=== PATIENT | male | born 2000 | race African-American/Black ===

== ENCOUNTER 2022-01-25 16:47 | Emergency (ER) | payer SELFPAY ==
[2022-01-25] MEDS ORDERED: ONDANSETRON 4 MG/2 ML VIAL ONE (16:58)
[2022-01-25] MEDS ORDERED: HYDROMORPHONE HCL 1 MG/ML INJ ONE ×3 (16:58→18:31)
--- NOTE | 2022-01-25 17:13 | RAD REPORT ---
EXAM DESCRIPTION: Surinder Cedillo Left01/25/2022 5:06 pm CLINICAL HISTORY: Left leg pain status post injury FINDINGS: A nondisplaced fracture mid to distal left fibula.
--- NOTE | 2022-01-25 17:16 | RAD REPORT ---
EXAM DESCRIPTION: RAD - Foot Left 3 View - 01/25/2022 5:06 pm CLINICAL HISTORY: Left Foot pain status post injury FINDINGS: Moderately displaced fracture mid second metatarsal. Markedly displaced comminuted fracture of mid to distal third metatarsal Moderately displaced fracture distal fifth metatarsal. Radiopaque foreign body within the medial subcutaneous tissues forefoot. Lacerations involve the medi al foot. No dislocation is seen
[2022-01-25] MEDS ORDERED: CEFAZOLIN SODIUM 1 GM/VIAL ONE (17:21)
[2022-01-25] MEDS ORDERED: NA CHLORIDE 0.9% 100 ML IV ONE (17:23)
[2022-01-25] MEDS ORDERED: TETANUS & DIPHTHERIA TOX,ADULT 0.5 ML VIAL ONE (18:31)
[2022-01-25 19:16] LABS: Absolute Lymphocytes (CBC) 2.9 K/uL (0.7-4.9); Hematocrit 40.7 % (39.6-49.0); Lymphocytes % 42.9 % (15.3-44.8); MPV 10.6 fL (7.6-11.3)
--- NOTE | 2022-01-25 19:41 | ER ---
Nurse's Notes [facility] Name: Haja Sandhu Age: 21 yrs Sex: Male : 2000 Arrival Date: 01/25/2022 Time: 16:47 Bed 17 Private MD: Diagnosis: Second, third, fifth metacarpal fracture - open;Distal Fibular Fracture Presentation: 01/25 17:07 Chief complaint: Patient states: Left foot pain and laceration. 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 Ankle laceration is 4cm x 1cm and foot laceration is 13.5cm x 3cm. Coronavirus screen: Vaccine status: Client denies travel out of the [place] in the last 14 days. Ebola Screen: Patient denies travel to an Ebola-affected area in the 21 days before illness onset. Initial Sepsis Screen: Does the patient meet any 2 criteria? No. Patient's initial sepsis screen is negative. Does the patient have a suspected source of infection? No. Patient's initial sepsis screen is negative. Risk Assessment: Do you want to hurt yourself or someone else? Patient reports no desire to harm self or others. Onset of symptoms was January 25, 2022. 17:07 Method Of Arrival: EMS: [facility] 17:07 Acuity: MARIE 3 ww Triage Assessment: 17:11 General: Appears uncomfortable, Behavior is cooperative, crying. Pain: Complains of ww pain in left medial malleolus, instep of left foot, arch of left foot, dorsum of left foot, medial aspect of left toes and left leg. EENT: No signs and/or symptoms were reported regarding the EENT system. Neuro: Level of Consciousness is awake, alert, obeys commands, Oriented to person, place, time, situation, Speech is normal. Cardiovascular: Capillary refill < 3 seconds Patient's skin is warm and dry. Rhythm is regular. Respiratory: Airway is patent Respiratory effort is even, unlabored, Respiratory pattern is regular, symmetrical. GI: No signs and/or symptoms were reported involving the gastrointestinal system. : No signs and/or symptoms were reported regarding the genitourinary system. Derm: Skin is healthy with good turgor. Musculoskeletal: Injury Description: Laceration sustained to left medial ankle and medial aspect of left foot is Ankle 4cm x 1cm; foot 13.5cm x 3cm. Historical: - Allergies: 17:11 No Known Allergies; ww - Home Meds: 17:11 None [Active]; ww - PMHx: 17:11 None; ww - PSHx: 17:11 None; ww - Immunization history:: Last tetanus immunization: unknown. - Social history:: Smoking status: Patient denies any tobacco usage or history of. Patient uses street drugs, marijuana. Screenin:14 Abuse screen: Denies threats or abuse. Denies injuries from another. Nutritional ww screening: No deficits noted. Tuberculosis screening: No symptoms or risk factors identified. Fall Risk None identified. Assessment: 17:14 Reassessment: see triage assessment. ww 17:45 Reassessment: No changes from previously documented assessment. Patient and/or family ww updated on plan of care and expected duration. Pain level reassessed. Patient states symptoms have not improved. Neuro: Level of Consciousness is awake, alert, obeys commands, Oriented to person, place, time, situation, Speech is normal, Respiratory: Airway is patent Respiratory effort is even, unlabored, Respiratory pattern is regular, symmetrical. 18:30 Reassessment: No changes from previously documented assessment. Patient and/or family ww updated on plan of care and expected duration. Pain level reassessed. states pain has decreased to an 8/10. 19:02 General: Appears in no apparent distress. Behavior is calm, cooperative, appropriate vc1 for age. Neuro: Level of Consciousness is awake, alert, obeys commands, Oriented to person, place, time, situation, Appropriate for age. Cardiovascular: Patient's skin is warm and dry. Derm: Wound noted medial aspect of left foot. 19:21 Reassessment: Labs recollected and sent. vc1 20:37 Reassessment: Patient transferred by EMS, IV patent, respirations even and unlabored. vc1 Vital Signs: 17:07 BP 133 / 118; Pulse 80; Resp 18; Temp 98.6; Pulse Ox 100% ; Weight 81.65 kg; Height 6 ww ft. 0 in. (182.88 cm); Pain 10/10; 17:30 BP 150 / 68; Pulse 61; Resp 16; Pulse Ox 99% on R/A; Pain 10/10; ww 18:00 BP 141 / 120; Pulse 61; Resp 12; Pulse Ox 99% on R/A; Pain 10/10; ww 19:00 Pain 5/10; vc1 19:03 BP 128 / 107; Pulse 49; Resp 18; Pulse Ox 100% on R/A; vc1 19:18 BP 126 / 75; Pulse 63; Resp 17; Pulse Ox 98% on R/A; ww 17:07 Body Mass Index 24.41 (81.65 kg, 182.88 cm) ww Trauma Score (Adult): 17:30 Eye Response: spontaneous(1); Verbal Response: oriented(1); Motor Response: obeys ww commands(2); Systolic BP: > 89 mm Hg(4); Respiratory Rate: 10 to 29 per min(4); [place] Score: 15; Trauma Score: 12 18:00 Eye Response: spontaneous(1); Verbal Response: oriented(1); Motor Response: obeys ww commands(2); Systolic BP: > 89 mm Hg(4); Respiratory Rate: 10 to 29 per min(4); Lindsey Score: 15; Trauma Score: 12 18:30 Eye Response: spontaneous(1); Verbal Response: oriented(1); Motor Response: obeys ww commands(2); Systolic BP: > 89 mm Hg(4); Respiratory Rate: 10 to 29 per min(4); Lindsey Score: 15; Trauma Score: 12 ED Course: 16:47 Patient arrived in ED. ds1 16:48 Gallo Muniz PA is PHCP. [facility] 16:48 Mark Martins MD is Attending Physician. [facility] 16:52 Bina Evans, RN is Primary Nurse. ww 17:06 Foot Left 3 View XRAY In Process Unspecified. EDMS 17:06 Tib Fib Left XRAY In Process Unspecified. EDMS 17:09 Triage completed. ww 17:11 Arm band placed on right wrist. ww 17:14 Patient has correct armband on for positive identification. Bed in low position. Call ww light in reach. Side rails up X2. drupal developer on. Pulse ox on. NIBP on. 17:14 Inserted saline lock: 20 gauge in left antecubital area, using aseptic technique. Blood ww collected. 18:00 transfer initiated with [facility] transfer center; transfer declined due to em1 capacity. 19:22 Primary Nurse role handed off by Bina Evans, CONRADO vc1 19:22 Emily Agustin, CONRADO is Primary Nurse. vc1 19:23 initiated a transfer with Romero Quan from [facility]. mw2 19:27 administrative approval given by Romero Quan/ patient has been accepted to [address] to the ER/ Dr. Covarrubias accepted the patient in transfer/report to be called to [phone]. 20:29 Orthoglass splint: Posterior short lleg splint applied on left leg. APPLIED WET AND DRY oe 4/4 GAUZE. 20:36 No provider procedures requiring assistance completed. Patient transferred, IV remains vc1 in place. Administered Medications: 17:04 Drug: Dilaudid (HYDROmorphone) 0.5 mg Route: IVP; Site: left antecubital; ww 17:04 Drug: Zofran (Ondansetron) 4 mg Route: IVP; Site: left antecubital; ww 17:24 Drug: Ancef (cefazolin) 1 grams Route: IVPB; Site: left antecubital; ww 17:24 Drug: Dilaudid (HYDROmorphone) 0.5 mg Route: IVP; Site: left antecubital; ww 18:33 Drug: Tetanus-Diphtheria Toxoid Adult 0.5 ml {P[employer]outer: [employer]. Exp: ww 04/06/2023. Lot #: [id number]. } Route: IM; Site: left deltoid; 19:00 Follow up: Response: No adverse reaction vc1 18:33 Drug: Dilaudid (HYDROmorphone) 1 mg Route: IVP; Site: left antecubital; ww 19:00 Follow up: Pain 5/10 Adult; Response: No adverse reaction; Marked relief of symptoms vc1 20:06 Drug: Lidocaine (1 %) 5 ml Volume: 5 ml; Route: Infiltration; Site: wound; vc1 20:06 Drug: Marcaine (bupivacaine) (0.5 %) 10 ml Volume: 10 ml; Route: Infiltration; Site: vc1 wound; 20:07 Drug: Dilaudid (HYDROmorphone) 0.5 mg Route: IVP; Site: right antecubital; vc1 01/26 02:25 Follow up: Response: No adverse reaction vc1 Outcome: 01/25 19:40 ER care complete, transfer ordered by MD. rodríguez 20:37 Transferred by ground EMS to [facility]. vc1 20:37 Condition: good 20:37 Instructed on the need for transfer. 20:40 Patient left the ED. vc1 Signatures: Dispatcher [employer] EDMS Gallo Muniz PA PA jmm Sanford, Chasity ds1 Antelmo Blake em1 Tevin Canales MyKena mw2 Bina Evans, RN RN ww Emily Agustin RN RN vc1 Corrections: (The following items were deleted from the chart) 17:11 17:07 Pulse 80bpm; Resp 18bpm; Pulse Ox 100%; Temp 98.6F; 81.65 kg; Height 6 ft. 0 in.; ww BMI: 24.4; Pain /; ww
--- NOTE | 2022-01-25 19:41 | EDPHYS ---
Physician Documentation [facility] Name: Haja Sandhu Age: 21 yrs Sex: Male : 2000 Arrival Date: 01/25/2022 Time: 16:47 Bed 17 Private MD: ED Physician Mark Martins HPI: 01/25 16:49 This 21 yrs old Black Male presents to ER via EMS with complaints of Foot Injury. jmm 16:49 The patient presents with an injury. jmm 16:49 The complaints affect the left lateral ankle, lateral aspect of left foot, left jmm Achilles, left heel, left medial ankle and medial aspect of left foot. Onset: The symptoms/episode began/occurred acutely, just prior to arrival. Modifying factors: The symptoms are alleviated by nothing. the symptoms are aggravated by nothing. Associated signs and symptoms: Pertinent positives: swelling. The patient has not experienced similar symptoms in the past. Historical: - Allergies: 17:11 No Known Allergies; ww - Home Meds: 17:11 None [Active]; ww - PMHx: 17:11 None; ww - PSHx: 17:11 None; ww - Immunization history:: Last tetanus immunization: unknown. - Social history:: Smoking status: Patient denies any tobacco usage or history of. Patient uses street drugs, marijuana. ROS: 16:49 Constitutional: Negative for fever, chills, and weight loss, Cardiovascular: Negative jmm for chest pain, palpitations, and edema, Respiratory: Negative for shortness of breath, cough, wheezing, and pleuritic chest pain, Abdomen/GI: Negative for abdominal pain, nausea, vomiting, diarrhea, and constipation. 16:49 MS/extremity: Positive for injury or acute deformity, laceration, pain. 16:49 All other systems are negative. Exam: 16:49 Constitutional: This is a well developed, well nourished patient who is awake, alert, jmm and in no acute distress. Head/Face: atraumatic. Eyes: EOMI, no conjunctival erythema appreciated ENT: Moist Mucus Membranes Neck: Trachea midline, Supple Chest/axilla: Normal chest wall appearance and motion. Cardiovascular: Regular rate and rhythm. No edema appreciated Respiratory: Normal respirations, no respiratory distress appreciated Abdomen/GI: Non distended, soft Back: Normal ROM 16:49 Musculoskeletal/extremity: Swelling noted to the left foot, diffusely tender to palpation, dorsalis pedis pulse appreciated, compartments are soft, neurovascular intact. 16:49 Skin: 13 centimeter laceration noted to the left medial foot, mild bleeding appreciated.. 16:49 Neuro: Orientation: is normal, Mentation: is normal, Memory: is normal. 16:49 Psych: Behavior/mood is pleasant, cooperative, anxious. Vital Signs: 17:07 BP 133 / 118; Pulse 80; Resp 18; Temp 98.6; Pulse Ox 100% ; Weight 81.65 kg; Height 6 ww ft. 0 in. (182.88 cm); Pain 10/10; 17:30 BP 150 / 68; Pulse 61; Resp 16; Pulse Ox 99% on R/A; Pain 10/10; ww 18:00 BP 141 / 120; Pulse 61; Resp 12; Pulse Ox 99% on R/A; Pain 10/10; ww 19:00 Pain 5/10; vc1 19:03 BP 128 / 107; Pulse 49; Resp 18; Pulse Ox 100% on R/A; vc1 19:18 BP 126 / 75; Pulse 63; Resp 17; Pulse Ox 98% on R/A; ww 17:07 Body Mass Index 24.41 (81.65 kg, 182.88 cm) Trauma Score (Adult): 17:30 Eye Response: spontaneous(1); Verbal Response: oriented(1); Motor Response: obeys commands(2); Systolic BP: > 89 mm Hg(4); Respiratory Rate: 10 to 29 per min(4); Hazel Score: 15; Trauma Score: 12 18:00 Eye Response: spontaneous(1); Verbal Response: oriented(1); Motor Response: obeys commands(2); Systolic BP: > 89 mm Hg(4); Respiratory Rate: 10 to 29 per min(4); Hazel Score: 15; Trauma Score: 12 18:30 Eye Response: spontaneous(1); Verbal Response: oriented(1); Motor Response: obeys commands(2); Systolic BP: > 89 mm Hg(4); Respiratory Rate: 10 to 29 per min(4); Lindsey Score: 15; Trauma Score: 12 MDM: 16:50 Patient medically screened. anne 19:38 Data reviewed: vital signs, nurses notes. Counseling: I had a detailed discussion with kwadwo the patient and/or guardian regarding: the historical points, exam findings, and any diagnostic results supporting the discharge/admit diagnosis, radiology results, the need to transfer to another facility. ED course: I discussed the patient with Dr. Aurora ALVARADO, recommends transfer for higher standard of care. We contacted [facility] who is at capacity. [facility] accepted transfer without consultation. IV antibiotics, wound care performed. 01/25 18:01 Order name: CBC with Diff; Complete Time: 19:36 [facility] 01/25 18:01 Order name: CMP; Complete Time: 19:53 [facility] 01/25 16:49 Order name: Foot Left 3 View XRAY; Complete Time: 17:17 [facility] 01/25 16:49 Order name: Tib Fib Left XRAY; Complete Time: 17:15 [facility] 01/25 18:01 Order name: SARS-COV-2 RT PCR (Document "Date of Onset" if Symptomatic); Complete Time: em1 19:18 Administered Medications: 17:04 Drug: Dilaudid (HYDROmorphone) 0.5 mg Route: IVP; Site: left antecubital; ww 17:04 Drug: Zofran (Ondansetron) 4 mg Route: IVP; Site: left antecubital; ww 17:24 Drug: Ancef (cefazolin) 1 grams Route: IVPB; Site: left antecubital; ww 17:24 Drug: Dilaudid (HYDROmorphone) 0.5 mg Route: IVP; Site: left antecubital; ww 18:33 Drug: Tetanus-Diphtheria Toxoid Adult 0.5 ml {[employer]: [employer]. Exp: ww 04/06/2023. Lot #: [id number]. } Route: IM; Site: left deltoid; 19:00 Follow up: Response: No adverse reaction vc1 18:33 Drug: Dilaudid (HYDROmorphone) 1 mg Route: IVP; Site: left antecubital; ww 19:00 Follow up: Pain 5/10 Adult; Response: No adverse reaction; Marked relief of symptoms vc1 20:06 Drug: Lidocaine (1 %) 5 ml Volume: 5 ml; Route: Infiltration; Site: wound; vc1 20:06 Drug: Marcaine (bupivacaine) (0.5 %) 10 ml Volume: 10 ml; Route: Infiltration; Site: vc1 wound; 20:07 Drug: Dilaudid (HYDROmorphone) 0.5 mg Route: IVP; Site: right antecubital; vc1 01/26 02:25 Follow up: Response: No adverse reaction vc1 Disposition Summary: 01/25/22 19:40 Transfer Ordered Transfer Location: [facility] Reason: Higher level of care jmm Condition: Stable jmm Problem: new jmm Symptoms: are unchanged jmm Accepting Physician: Bharat(01/25/22 20:40) vc1 Diagnosis - Second, third, fifth metacarpal fracture - open jmm - Distal Fibular Fracture jmm Forms: - Medication Reconciliation Form jmm - SBAR form jmm Signatures: Dispatcher [employer] EDGallo Fay PA PA jmm Wood, Whitney, RN RN ww Emily Agustin RN RN vc1 Corrections: (The following items were deleted from the chart) 01/25 20:40 19:40 Bharat rodríguez vc1
[2022-01-25 19:47] LABS: Potassium 3.5 mmol/L (3.5-5.1); Protein, Total 7.4 g/dL (6.4-8.2)
[2022-01-25] MEDS ORDERED: LIDOCAINE 1% MPF 5 ML VIAL ONE (20:00)
[2022-01-25] MEDS ORDERED: BUPIVACAINE 0.5% PF 10 ML VIAL ONE (20:00)
[2022-01-25] MEDS ORDERED: HYDROMORPHONE HCL 0.5 MG/0.5 ML INJ ONE (20:05)
[2022-01-25 21:04] VITALS: TEMP 98.6
[2022-01-25 21:11] VITALS: BP 126/75; O2SAT 98
== END 2022-01-25 20:40 | disposition short-term general hospital (02) ==
LOC: ER 16:47
PROC: 2W3RX1Z Immobilization of Left Lower Leg using Splint (ICD-10-PCS; principal; 2022-01-25)
DX: S62.303B Unspecified fracture of third metacarpal bone, left hand, initial encounter for open fracture (principal); S62.307B Unspecified fracture of fifth metacarpal bone, left hand, initial encounter for open fracture; S82.832A Other fracture of upper and lower end of left fibula, initial encounter for closed fracture; W22.8XXA Striking against or struck by other objects, initial encounter; Y92.89 Other specified places as the place of occurrence of the external cause; Y99.8 Other external cause status; Z23 Encounter for immunization
CPT/HCPCS: 36415; 80053; 85025; 90471; 90714; 99285; J0690; J1170; J2405; U0003